=== PATIENT | female | born 1935 | race African-American/Black ===

== ENCOUNTER 2024-09-04 00:37 | Inpatient (IN) | payer MEDICARE ==
[~2024-09-04] VITALS: Ht 162.6 cm; Wt 84.4 kg
[2024-09-04 02:52] LABS: BASOPHILS % 0.4 % (0.0-2.0); EOSINOPHILS % 1.9 % (0.0-5.0); HEMATOCRIT. 33.4 % (36.0-48.0); HEMOGLOBIN. 11.4 g/dL (12.0-16.0); LYMPHOCYTES % 23.8 % (20.0-50.0); MEAN CORPUSCULAR HEMOGLOBIN 30.3 pg (28.0-32.0); MEAN CORPUSCULAR HGB CONC 34.2 g/dL (31.0-37.0); MEAN CORPUSCULAR VOLUME 88.7 fL (81.0-99.0); MEAN PLATELET VOLUME 8.8 fl (7.4-10.4); MONOCYTES % 11.6 % (2.0-8.0); NEUTROPHILS % 62.3 % (40.0-76.0); PLATELET 186 x1000/uL (130-400); RED BLOOD CELL COUNT 3.77 mill/uL (4.2-5.4); RED CELL DISTRIBUTION WIDTH 14.1 % (11.6-14.6); WHITE BLOOD COUNT 9.7 x1000/uL (4.5-11.0)
[2024-09-04 02:56] LABS: CHLORIDE 107 mEq/L (98-107); POTASSIUM 4.1 mEq/L (3.5-5.1); SODIUM 144 mEq/L (136-145)
[2024-09-04 02:57] LABS: CALCIUM 10.5 mg/dL (8.7-10.4); CARBON DIOXIDE 28 mEq/L (21-32)
[2024-09-04 03:02] LABS: CREATININE 1.5 mg/dL (0.6-1.0); GLUCOSE 130 mg/dL (70-105); UREA NITROGEN BLOOD 32 mg/dL (9-23)
[2024-09-04 03:03] LABS: ETHANOL BLOOD < 10 mg/dL (<10); TROPONIN I HIGH SENSITIVITY 13 ng/L (3.0-34)
[2024-09-04 03:06] LABS: PARTIAL THROMBOPLASTIN TIME 26.2 sec (23.4-31.0); PROTHROMBIN TIME 10.5 sec (9.6-11.0)
[2024-09-04] MEDS: ACETAMINOPHEN 325MG TABLET PO NR (04:42)
[2024-09-04] MEDS: HYDROCODONE/ACETAMINOPHEN 5/325MG TABLET PO ONE (06:19)
[2024-09-04 08:00] VITALS: BP 173/64; PULSE 77; RESP 17; TEMP 36.6; O2SAT 97
[2024-09-04] MEDS: HYDRALAZINE 20MG/ML VIAL IV SCH (09:30)
[2024-09-04 09:37] VITALS: BP 128/51; PULSE 74; RESP 17; TEMP 36.6
[2024-09-04] MEDS ORDERED: IPRATROPIUM/ALBUTEROL 0.5-3(2.5)MG/3ML NEB HHN PRN (10:30)
[2024-09-04] MEDS ORDERED: ONDANSETRON HCL 4MG/2ML INJ IV PRN (10:30)
[2024-09-04] MEDS ORDERED: DEXTROSE 50% WATER 50ML SYRINGE IV PRN (10:30)
[2024-09-04] MEDS ORDERED: DOCUSATE SODIUM 100MG CAPSULE PO PRN (10:30)
[2024-09-04] MEDS ORDERED: ACETAMINOPHEN 325MG TABLET PO PRN ×2 (10:30)
[2024-09-04] MEDS: PANTOPRAZOLE SODIUM 40 MG/VIAL IV SCH (10:30)
[2024-09-04] MEDS ORDERED: CLONIDINE 0.1MG TABLET PO PRN (10:30)
[2024-09-04] MEDS ORDERED: LOSA50TA41 MT (11:53)
[2024-09-04] MEDS ORDERED: HYDR12.54 MT (11:53)
[2024-09-04] MEDS ORDERED: LATA2.5D14 EACHEYE (11:53)
[2024-09-04] MEDS ORDERED: DORZ10DR8 EACHEYE (11:53)
[2024-09-04 12:00] VITALS: BP 157/66; PULSE 70; RESP 18; TEMP 36.4; O2SAT 98
[2024-09-04] MEDS: BLOOD SUGAR DIAGNOSTIC STRIP TEST SCH (12:20)
[2024-09-04] MEDS: INSULIN LISPRO 100 UNITS/ML SUBCUT SCH (12:50)
[2024-09-04] MEDS: HYDRALAZINE HCL 25MG TABLET PO SCH (14:00)
[2024-09-04 16:00] VITALS: BP 154/52; PULSE 70; RESP 18; TEMP 36.7; O2SAT 98
[2024-09-04 16:27] LABS: *AMPHETAMINES SCREEN URINE NEGATIVE (NEGATIVE); *BARBITURATES SCREEN URINE NEGATIVE (NEGATIVE); *BENZODIAZEPINES SCREEN URINE NEGATIVE (NEGATIVE); *COCAINE SCREEN URINE NEGATIVE (NEGATIVE); CANNABINOID URINE SCREEN NEGATIVE (NEGATIVE); ECSTASY MDMA SCREEN URINE NEGATIVE (NEGATIVE); METHADONE URINE SCREEN NEGATIVE (NEGATIVE); OPIATES URINE SCREEN NEGATIVE (NEGATIVE); PHENCYCLIDINE URINE SCREEN NEGATIVE (NEGATIVE)
[2024-09-04] MEDS: HYDROCODONE/ACETAMINOPHEN 5/325MG TABLET PO PRN (19:14)
[2024-09-04 20:00] VITALS: BP 162/42; PULSE 77; RESP 18; TEMP 37.2; O2SAT 98
[2024-09-04 21:49] LABS: CREATINE KINASE 288 IU/L (34-145)
[2024-09-04 22:03] LABS: HEPATITIS B SURFACE ANTIGEN NEGATIVE (Negative)
[2024-09-04 22:24] LABS: HEPATITIS C AB NON REACTIVE (Neg) (Negative)
[2024-09-05] VITALS: BP 133/39; PULSE 83; RESP 18; TEMP 36.5; O2SAT 98
[2024-09-05 04:00] VITALS: BP 122/40; PULSE 83; RESP 18; TEMP 36.7; O2SAT 98
[2024-09-05 08:00] VITALS: BP 106/49; PULSE 79; RESP 18; TEMP 36.4; O2SAT 98
[2024-09-05] MEDS: LOSARTAN 50 MG TABLET PO SCH (09:02)
[2024-09-05] MEDS: HYDROCHLOROTHIAZIDE 12.5MG CAPSULE PO SCH (09:03)
[2024-09-05 11:21] LABS: CLARITY URINE CLEAR (CLEAR); COLOR URINE YELLOW (YELLOW); GLUCOSE URINE NEGATIVE (NEGATIVE); KETONES URINE NEGATIVE (NEGATIVE); LEUKOCYTE ESTERASE URINE NEGATIVE (NEGATIVE); NITRITE URINE NEGATIVE (NEGATIVE); OCCULT BLOOD URINE NEGATIVE (NEGATIVE); PROTEIN URINE TRACE (NEGATIVE); SPECIFIC GRAVITY URINE 1.015 (1.005-1.030); UROBILINOGEN URINE 0.2 E.U./dL (0.2-1.0)
[2024-09-05 11:46] LABS: BACTERIA URINE 1+; MUCUS URINE TRACE /lpf (< = 2+); SQUAMOUS EPITHELIAL CELL URINE 3+ /lpf (RARE/1+)
[2024-09-05 11:48] LABS: WBC URINE 0-2 /hpf (0-2)
[2024-09-05 11:52] LABS: RBC URINE NONE SEEN /hpf (0-2)
[2024-09-05 11:57] LABS: *AMPHETAMINES SCREEN URINE NEGATIVE (NEGATIVE); *BARBITURATES SCREEN URINE NEGATIVE (NEGATIVE); *BENZODIAZEPINES SCREEN URINE NEGATIVE (NEGATIVE); *COCAINE SCREEN URINE NEGATIVE (NEGATIVE); CANNABINOID URINE SCREEN NEGATIVE (NEGATIVE); ECSTASY MDMA SCREEN URINE NEGATIVE (NEGATIVE); METHADONE URINE SCREEN NEGATIVE (NEGATIVE); OPIATES URINE SCREEN PRESUMPTIVE POSITIVE (NEGATIVE); PHENCYCLIDINE URINE SCREEN NEGATIVE (NEGATIVE)
[2024-09-05 12:00] VITALS: BP 135/45; PULSE 79; RESP 18; TEMP 36.2; O2SAT 96
[2024-09-05 16:00] VITALS: BP 139/58; PULSE 88; RESP 18; TEMP 36.6; O2SAT 97
[2024-09-05 20:00] VITALS: BP 128/50; PULSE 88; RESP 18; TEMP 36.6; O2SAT 97
[2024-09-06] VITALS: BP 128/50; PULSE 88; RESP 18; TEMP 36.6; O2SAT 97
[2024-09-06 04:07] VITALS: BP 128/50; PULSE 88; RESP 18; TEMP 36.6; O2SAT 97
[2024-09-06 08:00] VITALS: BP 151/58; PULSE 89; RESP 17; TEMP 36.2; O2SAT 97
[2024-09-06 14:45] VITALS: BP 145/56; PULSE 76; TEMP 97.2; O2SAT 96
== END 2024-09-06 16:10 | disposition home or self-care (01) | DRG 605 ==
LOC: ER 00:37 → 6WST 04:38 → EDBEDREQ 04:54 → EDBEDREQTM 04:54 → ENRESERV 05:32
PROVIDERS: ADMIT Internal Medicine; ATTEND Internal Medicine
PROC: 0HQ1XZZ Repair Face Skin, External Approach (ICD-10-PCS; principal; 2024-09-04)
DX: S00.03XA Contusion of scalp, initial encounter (principal); N17.9 Acute kidney failure, unspecified; M19.032 Primary osteoarthritis, left wrist; D64.9 Anemia, unspecified; E11.9 Type 2 diabetes mellitus without complications; S63.592A Other specified sprain of left wrist, initial encounter; I10 Essential (primary) hypertension; W01.0XXA Fall on same level from slipping, tripping and stumbling without subsequent striking against object, initial encounter; S00.81XA Abrasion of other part of head, initial encounter; Z79.82 Long term (current) use of aspirin; Z88.5 Allergy status to narcotic agent; Y93.89 Activity, other specified; Y92.89 Other specified places as the place of occurrence of the external cause; Y99.8 Other external cause status
CPT/HCPCS: 12011; 36415; 70551; 71045; 73110; 80048; 80305; 80320; 81003; 82550; 82962; 83036; 83880; 84484; 85025; 86705; 87340; 93005; 93970; 99285; A4606; J2470; G0480